=== PATIENT | female | born 1995 | race Caucasian/White ===

== ENCOUNTER 2021-04-20 19:51 | Emergency (ER) | payer OTHER ==
[2021-04-20 22:18] LABS: HEMOGLOBIN 11.7 gm/dl (12.3-15.3); RED BLOOD COUNT 4.32 M/UL (4.00-5.10)
[2021-04-20 22:50] LABS: BUN/CREATININE RATIO 16 (0-10)
[2021-04-21] MEDS ORDERED: BENZONATATE100 MG PO (02:27)
[2021-04-21] MEDS ORDERED: DOXYCYCLINE MO100 MG PO (02:27)
[2021-04-21] MEDS ORDERED: LODINE CAP 300300 MG PO (02:27)
[2021-04-21] MEDS ORDERED: ZOFRAN ODT 4 MG4 MG PO (02:27)
[2021-04-21] MEDS ORDERED: PROVENTIL HFA6.7 GM INH (02:27)
== END 2021-04-21 02:29 | disposition home or self-care (01) ==
LOC: ER1 19:51
PROVIDERS: Physician Assistant
DX: U07.1 COVID-19 (principal); F17.210 Nicotine dependence, cigarettes, uncomplicated
CPT/HCPCS: 0240U; 71045; 80053; 81001; 82550; 82553; 83874; 83880; 84484; 84703; 85025; 85379; 85610; 85652; 85730; 86140; 87081; 87086; 87880; 99283